=== PATIENT | male | born 1955 | race Caucasian/White ===

== ENCOUNTER 2022-05-22 13:31 | Inpatient (IN) | payer BC, OTHER ==
[~2022-05-22] VITALS: Ht 165.1 cm; Wt 76.9 kg
[2022-05-22] VITALS (8 sets, daily range): BP systolic 77–125
[2022-05-22] MEDS ORDERED: NACL 0.9% 1,000 ML IV ONE (13:45)
[2022-05-22] MEDS ORDERED: METOPROLOL TARTRATE 5 MG/5 ML AMPUL IVP ONE (14:00)
[2022-05-22] MEDS ORDERED: MORPHINE 4 MG INJ. 4 MG/ML VIAL ONE (14:19)
[2022-05-22] MEDS ORDERED: NITROGLYCERIN 1 INCH (GM) OINT. ONE (14:23)
[2022-05-22] MEDS ORDERED: METOPROLOL TARTRATE 5 MG/5 ML AMPUL ONE (14:27)
[2022-05-22 14:37] LABS: BASOPHILS % (AUTO) 0.4 % (0.0-2.0); EOSINOPHILS # (AUTO) 0.1 K/uL (0.0-0.4); EOSINOPHILS % (AUTO) 1.1 % (0.0-4.0); HEMATOCRIT 42.6 % (36-54); HEMOGLOBIN 14.5 g/dL (14.0-18.0); LYMPHOCYTES # (AUTO) 1.1 K/uL (1.0-5.5); LYMPHOCYTES % (AUTO) 13.4 % (20.5-51.5); MEAN CORPUSCULAR HEMOGLOBIN 33 pg (27-31); MEAN CORPUSCULAR HGB CONC 34 % (32-36); MEAN CORPUSCULAR VOLUME 96 fL (79.0-98.0); MONOCYTES # (AUTO) 0.6 K/uL (0.0-1.0); MONOCYTES % (AUTO) 7.8 % (1.7-9.3); NEUTROPHILS # (AUTO) 6.2 K/uL (1.8-7.7); NEUTROPHILS % (AUTO) 77.3 % (40.0-70.0); PLATELET COUNT (AUTO) 152 K/uL (130-430); RED BLOOD CELL COUNT(AUTO) 4.45 MIL/uL (4.2-6.2); RED CELL DISTRIBUTION WIDTH 14.1 % (9.0-15.0); WHITE BLOOD COUNT (AUTO) 8.1 K/uL (4.8-10.8)
[2022-05-22] MEDS ORDERED: WARF4TAB72 PO (14:51)
[2022-05-22] MEDS ORDERED: LISI10TA29 PO (14:51)
[2022-05-22 15:11] LABS: CALCIUM 9.6 mg/dL (8.4-11.0); CREATININE 1.13 mg/dL (0.55-1.30); TOTAL BILIRUBIN 0.7 mg/dL (0.0-1.0)
[2022-05-22 15:12] LABS: ALBUMIN 4.4 g/dL (3.4-4.8)
[2022-05-22] MEDS ORDERED: ACETAMINOPHEN 500 MG TABLET PO PRN (15:15)
[2022-05-22] MEDS ORDERED: ONDANSETRON HCL 4 MG/2 ML VIAL IVP PRN (15:15)
[2022-05-22] MEDS ORDERED: NS 500 ML IV ONE (15:45)
[2022-05-22] MEDS ORDERED: LISINOPRIL 10 MG TABLET (PRINIVIL) PO ONE (19:15)
[2022-05-22 20:17] LABS: INR 2.6 (0.80-1.20); PROTHROMBIN TIME 24.9 SECS (9.5-12.5)
[2022-05-22] MEDS ORDERED: WARFARIN SODIUM 4 MG TABLET PO ONE (20:30)
[2022-05-22] MEDS ORDERED: PANTOPRAZOLE SODIUM 40 MG TAB PO ONE (20:30)
[2022-05-22] MEDS: METOPROLOL SUCCINATE 25 MG TAB.SR.24H (TOPROL XL) PO SCH (21:20)
[2022-05-22] MEDS: NACL 0.9% 1,000 ML IV SCH (21:38)
[2022-05-22] MEDS ORDERED: MORPHINE 4 MG INJ. 4 MG/ML VIAL IVP PRN (22:00)
[2022-05-22] MEDS ORDERED: NITROGLYCERIN 1 INCH (GM) OINT. TP ONE (23:30)
[2022-05-22] MEDS ORDERED: MORPHINE 4 MG INJ. 4 MG/ML VIAL IVP ONE (23:30)
[2022-05-23] VITALS (23 sets, daily range): BP systolic 86–149
[2022-05-23 07:35] LABS: CALCIUM 8.1 mg/dL (8.4-11.0); CREATININE 0.95 mg/dL (0.55-1.30); POTASSIUM 3.7 mmol/L (3.5-5.1); PROTHROMBIN TIME 28.2 SECS (9.5-12.5)
[2022-05-23 07:44] LABS: BASOPHILS % (AUTO) 0.3 % (0.0-2.0); EOSINOPHILS # (AUTO) 0.1 K/uL (0.0-0.4); HEMATOCRIT 36.2 % (36-54); HEMOGLOBIN 12.5 g/dL (14.0-18.0); LYMPHOCYTES # (AUTO) 1.3 K/uL (1.0-5.5); LYMPHOCYTES % (AUTO) 18.8 % (20.5-51.5); MEAN CORPUSCULAR HEMOGLOBIN 33 pg (27-31); MEAN CORPUSCULAR HGB CONC 35 % (32-36); MEAN CORPUSCULAR VOLUME 96 fL (79.0-98.0); MONOCYTES # (AUTO) 0.6 K/uL (0.0-1.0); MONOCYTES % (AUTO) 8.5 % (1.7-9.3); NEUTROPHILS # (AUTO) 5.1 K/uL (1.8-7.7); NEUTROPHILS % (AUTO) 71.4 % (40.0-70.0); PLATELET COUNT (AUTO) 131 K/uL (130-430); RED BLOOD CELL COUNT(AUTO) 3.76 MIL/uL (4.2-6.2); WHITE BLOOD COUNT (AUTO) 7.2 K/uL (4.8-10.8)
[2022-05-23 07:54] LABS: THYROID STIMULATING HORMONE 1.7 uIu/mL (0.36-3.74)
[2022-05-23] MEDS: LISINOPRIL 10 MG TABLET (PRINIVIL) PO SCH (08:34)
[2022-05-23] MEDS: PANTOPRAZOLE SODIUM 40 MG TAB PO SCH (08:34)
[2022-05-23] MEDS: METOPROLOL SUCCINATE 25 MG TAB.SR.24H (TOPROL XL) PO SCH ×2 (08:35→21:43)
[2022-05-23] MEDS: NACL 0.9% 1,000 ML IV SCH ×2 (10:08→17:49)
[2022-05-23 10:21] LABS: INR 3.3 (0.80-1.20)
[2022-05-23 10:25] LABS: PROTHROMBIN TIME 31.2 SECS (9.5-12.5)
[2022-05-23 13:47] LABS: C-REACTIVE PROTEIN QUANT < 0.2 mg/dL (0-0.5)
[2022-05-23] MEDS ORDERED: WARFARIN SODIUM 4 MG TABLET PO SCH (17:00)
[2022-05-23] MEDS ORDERED: WARFARIN SODIUM PO SCH ×2 (18:00)
[2022-05-23] MEDS ORDERED: WARFARIN SODIUM 4 MG TABLET ONE (21:09)
[2022-05-24] VITALS (18 sets, daily range): BP systolic 86–134
[2022-05-24 06:43] LABS: BASOPHILS % (AUTO) 0.3 % (0.0-2.0); EOSINOPHILS # (AUTO) 0.1 K/uL (0.0-0.4); EOSINOPHILS % (AUTO) 0.6 % (0.0-4.0); HEMATOCRIT 36.1 % (36-54); HEMOGLOBIN 12.5 g/dL (14.0-18.0); LYMPHOCYTES # (AUTO) 1.2 K/uL (1.0-5.5); LYMPHOCYTES % (AUTO) 12.3 % (20.5-51.5); MEAN CORPUSCULAR HEMOGLOBIN 33 pg (27-31); MEAN CORPUSCULAR HGB CONC 35 % (32-36); MEAN CORPUSCULAR VOLUME 97 fL (79.0-98.0); MONOCYTES # (AUTO) 0.9 K/uL (0.0-1.0); MONOCYTES % (AUTO) 9.5 % (1.7-9.3); NEUTROPHILS # (AUTO) 7.6 K/uL (1.8-7.7); NEUTROPHILS % (AUTO) 77.3 % (40.0-70.0); PLATELET COUNT (AUTO) 128 K/uL (130-430); RED BLOOD CELL COUNT(AUTO) 3.74 MIL/uL (4.2-6.2); RED CELL DISTRIBUTION WIDTH 14.2 % (9.0-15.0)
[2022-05-24 06:45] LABS: ALBUMIN 2.8 g/dL (3.4-4.8); CALCIUM 7.6 mg/dL (8.4-11.0); CREATININE 0.83 mg/dL (0.55-1.30); POTASSIUM 3.5 mmol/L (3.5-5.1)
[2022-05-24 08:02] LABS: TOTAL BILIRUBIN 0.8 mg/dL (0.0-1.0)
[2022-05-24] MEDS: PANTOPRAZOLE SODIUM 40 MG TAB PO SCH (08:20)
[2022-05-24] MEDS: METOPROLOL SUCCINATE 25 MG TAB.SR.24H (TOPROL XL) PO SCH ×2 (08:21→21:22)
[2022-05-24] MEDS: LISINOPRIL 10 MG TABLET (PRINIVIL) PO SCH (08:21)
[2022-05-24 11:37] LABS: WHITE BLOOD COUNT (AUTO) 9.8 K/uL (4.8-10.8)
[2022-05-24 11:42] LABS: PROTHROMBIN TIME 33.4 SECS (9.5-12.5)
[2022-05-24 11:43] LABS: INR 3.6 (0.80-1.20)
[2022-05-24] MEDS ORDERED: WARFARIN SODIUM 4 MG TABLET PO SCH (17:00)
[2022-05-24] MEDS ORDERED: WARFARIN SODIUM 2 MG TABLET PO SCH (18:00)
[2022-05-24] MEDS: NACL 0.9% 1,000 ML IV SCH (21:28)
[2022-05-25] VITALS: BP_SYST 115
[2022-05-25] MEDS: NACL 0.9% 1,000 ML IV SCH ×2 (00:04→10:33)
[2022-05-25 06:49] LABS: INR 2.8 (0.80-1.20); PROTHROMBIN TIME 26.5 SECS (9.5-12.5)
[2022-05-25 06:51] LABS: BASOPHILS % (AUTO) 0.2 % (0.0-2.0); EOSINOPHILS # (AUTO) 0.1 K/uL (0.0-0.4); EOSINOPHILS % (AUTO) 0.9 % (0.0-4.0); HEMATOCRIT 35.8 % (36-54); HEMOGLOBIN 12.3 g/dL (14.0-18.0); MEAN CORPUSCULAR HEMOGLOBIN 33 pg (27-31); MEAN CORPUSCULAR HGB CONC 34 % (32-36); MEAN CORPUSCULAR VOLUME 96 fL (79.0-98.0); MONOCYTES # (AUTO) 0.9 K/uL (0.0-1.0); MONOCYTES % (AUTO) 11.4 % (1.7-9.3); NEUTROPHILS % (AUTO) 75.5 % (40.0-70.0); PLATELET COUNT (AUTO) 125 K/uL (130-430); RED BLOOD CELL COUNT(AUTO) 3.71 MIL/uL (4.2-6.2); RED CELL DISTRIBUTION WIDTH 13.9 % (9.0-15.0); WHITE BLOOD COUNT (AUTO) 7.9 K/uL (4.8-10.8)
[2022-05-25 07:38] LABS: CALCIUM 7.6 mg/dL (8.4-11.0); CREATININE 1.02 mg/dL (0.55-1.30); POTASSIUM 3.4 mmol/L (3.5-5.1)
[2022-05-25 07:47] LABS: ALBUMIN 2.7 g/dL (3.4-4.8); TOTAL BILIRUBIN 0.7 mg/dL (0.0-1.0)
[2022-05-25 08:00] VITALS: BP_SYST 129
[2022-05-25] MEDS: METOPROLOL SUCCINATE 25 MG TAB.SR.24H (TOPROL XL) PO SCH ×2 (09:16→21:00)
[2022-05-25] MEDS: LISINOPRIL 10 MG TABLET (PRINIVIL) PO SCH (09:17)
[2022-05-25] MEDS: PANTOPRAZOLE SODIUM 40 MG TAB PO SCH (09:17)
[2022-05-25 12:00] VITALS: BP_SYST 114
[2022-05-25 16:00] VITALS: BP_SYST 104
[2022-05-25] MEDS: WARFARIN SODIUM 3 MG TABLET PO SCH (18:24)
[2022-05-25 20:00] VITALS: BP_SYST 97
[2022-05-26 01:12] VITALS: BP_SYST 117
[2022-05-26] MEDS: NACL 0.9% 1,000 ML IV SCH (05:29)
[2022-05-26 08:00] VITALS: BP_SYST 109
[2022-05-26] MEDS: PANTOPRAZOLE SODIUM 40 MG TAB PO SCH (08:28)
[2022-05-26] MEDS: LISINOPRIL 10 MG TABLET (PRINIVIL) PO SCH (08:29)
[2022-05-26] MEDS: METOPROLOL SUCCINATE 25 MG TAB.SR.24H (TOPROL XL) PO SCH ×2 (08:30→20:11)
[2022-05-26 09:13] LABS: INR 2.3 (0.80-1.20); PROTHROMBIN TIME 22.2 SECS (9.5-12.5)
[2022-05-26 12:00] VITALS: BP_SYST 127
[2022-05-26] MEDS: METOPROLOL TARTRATE 5 MG/5 ML AMPUL IVP PRN (13:12)
[2022-05-26 13:15] VITALS: BP_SYST 119
[2022-05-26 16:00] VITALS: BP_SYST 134
[2022-05-26] MEDS: WARFARIN SODIUM 3 MG TABLET PO SCH (18:03)
[2022-05-26 20:00] VITALS: BP_SYST 137
[2022-05-27] VITALS: BP_SYST 131
[2022-05-27 08:00] VITALS: BP_SYST 132
[2022-05-27] MEDS: LISINOPRIL 10 MG TABLET (PRINIVIL) PO SCH (08:26)
[2022-05-27] MEDS: METOPROLOL SUCCINATE 25 MG TAB.SR.24H (TOPROL XL) PO SCH ×2 (08:27→20:21)
[2022-05-27] MEDS: PANTOPRAZOLE SODIUM 40 MG TAB PO SCH (08:29)
[2022-05-27] MEDS: METOPROLOL TARTRATE 5 MG/5 ML AMPUL IVP PRN (08:39)
[2022-05-27] MEDS ORDERED: METOPROLOL TARTRATE 5 MG/5 ML AMPUL IVP ONE (09:45)
[2022-05-27 12:08] VITALS: BP_SYST 141
[2022-05-27 16:46] VITALS: BP_SYST 114
[2022-05-27] MEDS: WARFARIN SODIUM 3 MG TABLET PO SCH (17:50)
[2022-05-27 20:00] VITALS: BP_SYST 148
[2022-05-28 08:00] VITALS: BP_SYST 119
[2022-05-28] MEDS: LISINOPRIL 10 MG TABLET (PRINIVIL) PO SCH (08:15)
[2022-05-28] MEDS: PANTOPRAZOLE SODIUM 40 MG TAB PO SCH (08:15)
[2022-05-28] MEDS: METOPROLOL SUCCINATE 25 MG TAB.SR.24H (TOPROL XL) PO SCH ×2 (08:16→20:43)
[2022-05-28 08:35] LABS: INR 2.1 (0.80-1.20); PROTHROMBIN TIME 20.5 SECS (9.5-12.5)
[2022-05-28] MEDS: METOPROLOL TARTRATE 5 MG/5 ML AMPUL IVP PRN (09:08)
[2022-05-28 12:00] VITALS: BP_SYST 126
[2022-05-28 16:00] VITALS: BP_SYST 122
[2022-05-28] MEDS: WARFARIN SODIUM 4 MG TABLET PO SCH (17:50)
[2022-05-28 19:00] VITALS: BP_SYST 93
[2022-05-29] VITALS: BP_SYST 100
[2022-05-29 06:00] VITALS: BP_SYST 124
[2022-05-29 08:00] VITALS: BP_SYST 119
[2022-05-29 08:05] LABS: INR 1.8 (0.80-1.20); PROTHROMBIN TIME 17.2 SECS (9.5-12.5)
[2022-05-29] MEDS: PANTOPRAZOLE SODIUM 40 MG TAB PO SCH (08:35)
[2022-05-29] MEDS: METOPROLOL SUCCINATE 25 MG TAB.SR.24H (TOPROL XL) PO SCH (08:35)
[2022-05-29] MEDS: LISINOPRIL 10 MG TABLET (PRINIVIL) PO SCH (08:35)
[2022-05-29 12:00] VITALS: BP_SYST 115
[2022-05-29 13:40] VITALS: BP_SYST 121
[2022-05-29] MEDS ORDERED: METO25TA3 PO (15:43)
[2022-05-29] MEDS ORDERED: WARF4TAB72 PO (15:45)
[2022-05-29 16:00] VITALS: BP_SYST 121
[2022-05-29] MEDS: WARFARIN SODIUM 4 MG TABLET PO SCH (17:32)
== END 2022-05-29 18:10 | disposition home health service (06) | DRG 311 ==
LOC: SED 13:31 → SIC 15:03 → STU 05-24 19:59
PROVIDERS: ADMIT Family Medicine; ATTEND Family Medicine
DX: I24.8 Other forms of acute ischemic heart disease (principal); I48.20 Chronic atrial fibrillation, unspecified; I10 Essential (primary) hypertension; I25.110 Atherosclerotic heart disease of native coronary artery with unstable angina pectoris; Z60.2 Problems related to living alone; I34.0 Nonrheumatic mitral (valve) insufficiency; Z79.01 Long term (current) use of anticoagulants; Z86.73 Personal history of transient ischemic attack (TIA), and cerebral infarction without residual deficits; Z79.899 Other long term (current) drug therapy
CPT/HCPCS: 36415; 71045; 76700-TC; 80048; 80053; 80061; 83690; 83735; 83880; 84443; 84484; 85025; 85379; 85610-TC; 85651-TC; 86140; 87040; 87081; 93005; 93306; 96361; 96374; 96375; 99291; G0378; J2270; J3490; J7030; J7040; J7060